=== PATIENT | female | born 1965 | race Caucasian/White ===

== ENCOUNTER 2018-12-09 17:45 | Emergency (ER) | payer SELFPAY ==
[~2018-12-09] VITALS: Ht 165.1 cm; Wt 88.2 kg
[2018-12-09 17:51] VITALS: Ht 165.1 cm; Wt 88.2 kg
[2018-12-09 18:51] LABS: BASOPHILS 0.5 % (0-2); EOSINOPHILS 0.2 % (0-7); HEMATOCRIT 39.7 % (36.0-48.0); HEMOGLOBIN 13.7 g/dL (12-16); IMMATURE GRANULOCYTES 0.2 % (0-5); LYMPHOCYTES 20.7 % (15-50); MCH 30.9 pg (26.0-34.0); MCHC 34.5 g/dL (31.0-37.0); MCV 89.4 fL (80.0-100.0); MEAN PLATELET VOLUME 9.4 fL (7.4-10.4); MONOCYTES 5.7 % (2-11); NEUTROPHILS 72.7 % (40-80); PLATELET COUNT 265 10x3/uL (130-400); RBC 4.44 10x6/uL (4.00-5.40); RDW 14.2 % (11.5-14.5); WBC 9.3 10x3/uL (4.8-10.8)
[2018-12-09 19:03] LABS: ALBUMIN 3.9 g/dL (3.4-5.0); ALKALINE PHOSPHATASE 66 U/L (46-116); ALT (SGPT) 23 U/L (10-68); BILIRUBIN - TOTAL 0.31 mg/dL (0.2-1.3); CALC OSMOLALITY 273 mosm/kg (275-300); CHLORIDE - SERUM 97 mmol/L (98-107); CREATININE - SERUM 0.8 mg/dL (0.6-1.3); GLUCOSE 105 mg/dL (74-106); POTASSIUM - SERUM 3.5 mmol/L (3.5-5.1); PROTEIN - SERUM 7.1 g/dL (6.4-8.2); SODIUM 136 mmol/L (136-145); UREA NITROGEN 18 mg/dL (7-18); eGFR NON AFRICAN AMERICAN 79 mL/min (90-120)
[2018-12-09 19:14] LABS: CKMB 1.1 U/L (0.0-3.6); CREATINE KINASE 75 UL (21-215); TROPONIN-I < 0.017 ng/mL (0.000-0.060)
[2018-12-09 22:09] VITALS: BP 133/72
== END 2018-12-09 22:10 | disposition home or self-care (01) ==
LOC: D.ER 17:45
PROVIDERS: Emergency Medicine
DX: R07.89 Other chest pain (principal)

== ENCOUNTER → 2018-12-29 10:11 | Outpatient (CLI) | payer OTHER ==
[2018-12-09 17:51] VITALS: BMI 32.3
== END | disposition home or self-care (01) ==
LOC: D.HCCARDIO 10:00
DX: I20.9 Angina pectoris, unspecified (principal)

== ENCOUNTER 2019-01-11 11:16 | Outpatient (CLI) | payer OTHER ==
[~2019-01-11] VITALS: Ht 165.1 cm; Wt 90.9 kg
--- NOTE | ~2019-01-11 | HEMODYNAMI ---
PATIENT:JULIA ERNANDEZ MEDICAL RECORD: [id number] : 65 LOCATION:[facility] ADMISSION DATE: 01/11/19 Generatedon:01/11/201913:20 Patient name: JULIA ERNANDEZ Patient #: [id number] SSN: DO B: 1965 Date of study: 01/11/2019 Page: Of Hemodynamic Procedure Report Patient Data Patient Demographics Procedure consent was obtained First Name: JULIA Gender: Female Last Name: AWAIS : 1965 [facility] Initial: JOHNSON Age: 53 year(s) Patient #: [id number] Race: Unknown Additional ID: [id number] Contact details [address]: [address] [place] [address] State: [place] City: [place] Zip code: [address] Admission Admission Data Admission Date: 01/11/2019 Admission Time: 11:16 Height (in.): 65 BSA: 1.98 (m2) Height (cm.): 165.1 BMI: 33.35 (kg/m2) Weight (lbs.): 200.42 Weight (kg.): 90.91 Procedure Procedure Types Cath Procedure Diagnostic Procedure C LHC w/Coronaries Procedure Description Procedure Date Procedure Date: 01/11/2019 Procedure Start Time: 13:09 Procedure End Time: 13:17 Procedure Staff Name Function Joe Massey MD Performing Physician Luz Maria Weston RN Nurse Jennifer Richards RT Scrub Frazaneh Pelletier RT Monitor Procedure Data Cath Procedure Fluoroscopy Diagnostic fluoroscopy Total fluoroscopy Time: 1.2 time: 1.2 min min Diagnostic fluoroscopy Total fluoroscopy dose: 268 dose: 268 mGy mGy Contrast Material Contrast Material Type Amount (ml) Isovue 300 52 Entry Location Entry Primary Successful Side Size Upsize Upsize Entry Closure Succes sful Closure Location (Fr) 1 (Fr) 2 (Fr) Remarks Device Remarks Femoral Right 5 Fr Exoseal artery Estimated blood loss: 5 ml Procedure Complications No complications Procedure Medications Medication Administration Route Dosage Oxygen etCO2 Nasal cannula 2 l/min Lidocaine 2% added to field 20 Heparin Flush Bag added to field 2 bags (1000units/500ml NS) 0.9% NaCl I.V. 100 ml/hr Radial Cocktail added to field 1 syringe (Verapomil 2mg/Nitro 400mcg/Heparin 1500units) Versed I.V. 2 mg Fentanyl I.V. 100 mcg Versed I.V. 1 mg Fentanyl I.V. 50 mcg Versed I.V. 1 mg Fentanyl I.V. 50 mcg Hemodynamics Rest BSA: 1.98 (m2) O2 Consumption: Estimated: 185.86 (ml/min) O2 Consumption indexed : Estimated:93.87 (ml/min/m) Heart Rate: 62 (bpm) Pressure Samples Time Site Value (mmHg) Purpose Heart Use Rate(bpm) 13:14 LV 108/-3,11 Snapshot 74 13:14 AO 130/72(98) Pullback 82 13:14 LV 123/-4,17 Pullback 82 Gradients Valve Time Site 1 Site 2 Mean SEP/DFP Peak To Heart Use (mmHg) (sec/min) Peak Rate (mmHg) (bpm) Aortic 13:14 LV AO 0 7 0 82 123/-4,17 130/72(98) Calculations Valve P-P Mean Valve Index Valve Source Name Gradient Area Flow (cm2) Aortic 0 0 0 0 Snapshots Pre Cath Intra NCS Post Cath Vital Signs Time Heart Resp SPO2 etCO2 NIBP Rhythm Pain Sedation Rate (ipm) (%) (mmHg) (mmHg) Status Level (bpm) 12:52:20 69 29 100 0 121/75(92) NSR 0 (11) 10(A) , No pain 12:56:34 70 14 99 39.5 117/72(88) NSR 0 (11) 10(A) , No pain 13:00:46 70 13 98 43.3 105/66(81) NSR 0 (11) 10(A) , No pain 13:05:00 70 15 99 25.8 114/61(85) NSR 0 (11) 9(A) , No pain 13:09:12 67 15 99 0 97/57(76) NSR 0 (11) 9(A) , No pain 13:13:24 71 11 100 34.9 106/59(78) NSR 0 (11) 9(A) , No pain 13:17:36 87 14 100 38 110/70(87) NSR 0 (11) 10(A) , No pain Medications Time Medication Route Dose Verified Delivered Reason Notes Effectiveness by by 12:55:03 Oxygen etCO2 2 l/min Joe Buffie used for Nasal Bryson Weston RN procedure cannula 12:55:10 Lidocaine 2% added 20ml Joe Joe for local to vial Bryson Massey MD anesthetic field 12:55:19 Heparin Flush added 2 bags Joe Joe used for Bag to Bryson Massey MD procedure (1000units/500ml field NS) 12:55:29 0.9% NaCl I.V. 100 Joe Buffie Per ml/hr Bryson Weston RN physician 12:55:35 Radial Cocktail added 1 Joe Joe for (Verapomil to syringe Bryson Massey MD vasodilation 2mg/Nitro field 400mcg/Heparin 1500units) 13:00:37 Versed I.V. 2 mg Joe Buffie for sedation Bryson Weston RN 13:00:43 Fentanyl I.V. 100 mcg Joe Buffie for sedation Bryson Weston RN 13:06:06 Versed I.V. 1 mg Joe Buffie for sedation Bryson Weston RN 13:06:11 Fentanyl I.V. 50 mcg Joe Buffie for sedation Bryson Weston RN 13:10:44 Versed I.V. 1 mg Joe Buffie for sedation Bryson Weston RN 13:10:47 Fentanyl I.V. 50 mcg Joe Buffie for sedation Bryson Weston RN Procedure Log Time Note 12:34:42 Patient Weight : 200.42 lbs 12:34:50 Patient Height : 65 inches 12:36:59 Time tracking: Regular hours (M-F 7:00 - 5:00) 12:37:03 Plan of Care:Hemodynamics will remain stable., Cardiac rhythm will remain stable., Comfort level will be maintained., Respiratory function will remain adequate., Patient/ family verbilizes understanding of procedure., Procedure tolerated without complication., Recovers from procedure without complications.. 12:37:53 Luz Maria Weston RN sent for patient. Start room use. 12:44:14 Patient received from Pre/Post Procedure Room to CCL 1 Alert and oriented. Tansferred to table in Supine position. 12:44:36 Warm blankets applied, and tamela hugger turned on for patient comfort. 12:44:37 Correct patient and procedure confirmed by team. 12:44:38 Signed procedure consent form obtained from patient. 12:44:39 ECG and BP/O2 sat monitors applied to patient. 12:44:40 Full Disclosure recording started 12:51:15 Vital chart was started 12:53:50 Baseline sample Acquired. 12:53:54 Rhythm: sinus rhythm 12:55:03 Oxygen 2 l/min etCO2 Nasal cannula was administered by Luz Maria Weston RN; used for procedure; 12:55:10 Lidocaine 2% 20ml vial added to field was administered by Joe Massey MD; for local anesthetic; 12:55:19 Heparin Flush Bag (1000units/500ml NS) 2 bags added to field was administered by Joe Massey MD; used for procedure; 12:55:29 0.9% NaCl 100 ml/hr I.V. was administered by Luz Maria Weston RN; Per physician; 12:55:35 Radial Cocktail (Verapomil 2mg/Nitro 400mcg/Heparin 1500units) 1 syringe added to field was administered by Joe Massey MD; for vasodilation; 12:55:57 H&P Date Dictated: 12/15/2018 Within 30 days and on chart., H&P Addendum completed by physician on day of procedure. (MUST COMPLETE FOR ALL OUTPATIENTS). 12:55:58 Pre-procedure instructions explained to patient. 12:55:59 Pre-op teaching completed and patient verbalized understanding. 12:56:00 Family in waiting room. 12:56:01 Patient NPO since Midnight. 12:56:24 Is the patient allergic to Iodine/contrast media? No. 12:56:25 Was the patient premedicated? No 12:56:28 Is patient on blood thinner?No 12:56:37 Patient diabetic? No. 12:56:39 Previous problem with sedation/anesthesia? No ? 12:57:32 Snore? No 12:57:33 Sleep apnea? No 12:57:34 Deviated septum? No 12:57:37 Opens mouth fully? Yes 12:57:38 Sticks out tongue? Yes 12:57:42 Airway obstruction? No ? 12:57:45 Dentures? No ? 12:58:12 Pre procedure: right dorsailis pedis pulse 2+ Normal; easily identifiable; not easily obliterated 12:58:15 Pre procedure: left dorsailis pedis pulse 2+ Normal; easily identifiable; not easily obliterated 12:58:19 Patient pain scale 0/10 ?. 12:58:30 IV patent on arrival in left antecubital with 0.9% NaCl at KVO. 12:58:33 Lab results completed and on chart. 12:58:42 Right Radial & Right Groin area was prepped with chlora-prep and draped in sterile fashion 12:58:43 Alarms reviewed by R. N. 12:58:44 Sharps counted by scrub and verified by R.N. 12:58:46 Physician arrived 12:58:46 --------ALL STOP TIME OUT------ 12:58:47 Final Timeout: patient, procedure, and site verified with staff and physician. All members of the team are in agreement. 12:58:49 Right Radial & Right Groin site verified by team. 12:58:57 Maximum allowable contrast dose 116.7ml. Physician notified. 12:59:01 Fire Safety Assessment: A--An alcohol-based skin anteseptic being used preoperatively., C--Open oxygen or nitrous oxide is being used., D--An ESU, laser, or fiber-optic light is being used. 12:59:10 Physical assessment completed. ASA score P 2 - A patient with mild systemic disease as per Joe Massey MD. 12:59:14 Sedation plan: IV Moderate Sedation Medication:Versed, Fentanyl 12:59:20 Use device set Radial Dx or PCI 12:59:22 ACIST Syringe (87151) opened to sterile field. 12:59:22 Medline Cath Pack ([id number]) opened to sterile field. 12:59:22 Bag Decanter (2002) opened to sterile field. 12:59:23 DIAGNOSTIC WIRE .035 260cm J wire (561913) opened to sterile field. 12:59:23 ACIST Hand Control (64644) opened to sterile field. 12:59:24 ACIST Manifold (97994) opened to sterile field. 12:59:24 Tegaderm 4 x 4 (1626W) opened to sterile field. 12:59:25 MBrace Wrist Support ([id number]) opened to sterile field. 12:59:25 NEEDLE Cook 21G 4cm Radial (H30637) opened to sterile field. 12:59:27 SHEATH 6FR Slender (80-1060) opened to sterile field. 13:00:37 Versed 2 mg I.V. was administered by Luz Maria Weston RN; for sedation; 13:00:43 Fentanyl 100 mcg I.V. was administered by Luz Maria Weston RN; for sedation; 13:06:06 Versed 1 mg I.V. was administered by Luz Maria Weston RN; for sedation; 13:06:11 Fentanyl 50 mcg I.V. was administered by Luz Maria Weston RN; for sedation; 13:06:18 Zero performed for pressure channel P1 13:06:26 Procedure started. 13:08:12 Dr Massey decided to go for femoral access after initial patient prep 13:09:14 Local anesthetic to right femoral artery with Lidocaine 2% by Joe Massey MD.INITIAL ACCESS ONLY 13:09:30 A 5 Fr sheath was inserted into the Right Femoral artery 13:10:12 SHEATH 5FR [place] (UXY275) opened to sterile field. 13:10:13 DIAGNOSTIC Multipack 5Fr catheter set (EQ0341) opened to sterile field. 13:10:29 5 Fr jl 4 guide catheter was inserted over the wire 13:10:35 LCA angiography performed. 13:10:38 Injector settings: Ml/sec: 3, Volume: 6, 13:10:44 Versed 1 mg I.V. was administered by Luz Maria Weston RN; for sedation; 13:10:47 Fentanyl 50 mcg I.V. was administered by Luz Maria Weston RN; for sedation; 13:11:09 Catheter removed. 13:11:18 5 Fr 3drc guide catheter was inserted over the wire 13:12:33 RCA angiography performed. 13:12:36 Injector settings: Ml/sec: 3, Volume: 6, 13:13:11 5 Fr pigtail guide catheter was inserted over the wire 13:14:11 LV hemodynamics recorded. 13:14:13 LV gram done using ORTIZ 13:14:15 Injector settings: Ml/sec: 5, Volume: 15, 13:14:23 EF : 55 % 13:14:33 Catheter removed. 13:14:51 EXOSEAL 5Fr (EX500) opened to sterile field. 13:15:01 Sheath removed intact; hemostasis achieved with Exoseal to the Right Femoral artery. 13:15:04 Procedure ended.(Physican Out) 13:16:37 Fluoroscopy time 01.20 minutes. 13:16:43 Fluoroscopy dose: 268 mGy 13:16:43 Flurop Dose total: 268 13:16:47 Contrast amount:Isovue 300 52ml. 13:16:49 Sharps counted by scrub and verified by R.N. 13:16:51 Insertion/operative site no bleeding no hematoma. 13:16:54 Post-op/insertion site Right Femoral artery dressed using a 4 x 4 and Tegaderm. 13:16:57 Post right femoral artery:stable 13:17:02 Post Procedure Pulses reassessed and unchanged 13:17:05 Post procedure rhythm: unchanged. 13:17:08 Estimated blood loss: 5 ml 13:17:10 Post procedure instruction explained to patient.Patient verbalizes understanding. 13:17:10 Patient needs reinforcement of post procedure teaching. 13:17:20 Procedure type changed to Cath procedure, Diagnostic procedure, LHC, LHC w/Coronaries 13:17:21 Procedure and supply charges have been captured, reviewed, submitted and are correct. 13:17:26 Procedure Complication : No complications 13:17:28 Vital chart was stopped 13:17:29 See physician's report for complete and final results. 13:17:32 Report given to Pre/Post Procedure Room. 13:17:35 Patient transfered to Pre/Post Procedure Room with Stretcher. 13:17:37 Procedure ended. 13:17:37 Full Disclosure recording stopped 13:17:41 End room use (Document Last) Device Usage Item Name Manufacture Quantity Catalog Hospital Part Current Minimal Lot# / Number Charge Number Stock Stock Serial# Code ACIST Acist 1 86306 227681 531330 919678 20 Syringe Medical (11657) Systems Inc Medline Medline 1 [id number] 365926 35004 580385 5 Cath Pack ([id number]) Bag Microtek 1 716104 93527 282502 5 Decanter Medical Inc. () DIAGNOSTIC [place] 1 334600 719839 090340 245097 30 WIRE .035 260cm J wire (336222) ACIST Hand Acist 1 91485 849253 098224 985195 5 Control Medical (56462) Systems Inc ACIST Acist 1 60947 030626 749000 577173 5 Manifold Medical (83782) Systems Inc Tegaderm 4 3M 1 1626W 647074 609746 781760 5 x 4 (1626W) MBrace Advanced 1 140-0250-00 292735 15591 399174 5 Wrist Vascular Support Dynamics ([id number]) NEEDLE [facility] [place] [employer] 1 D43360 256451 403793 730808 5 21G 4cm Radial (Y91106) SHEATH 6FR Terumo 1 [id number] 417340 846662 821229 5 Slender (80-1060) SHEATH 5FR Terumo 1 QJA955 233014 408250 759275 5 [place] (OEX301) DIAGNOSTIC Cardinal 1 DZ4470 230223 15535 226465 30 [facility] Carmolex, 5Fr catheter set (OU7839) EXOSEAL 5Fr Cardinal 1 EX500 131132 550989 233922 10 (EX500) Health Signature Audit [place] Stage Time Signature Unsigned Intra-Procedure 01/11/2019 Farzaneh Pelletier 1:20:13 PM RT(R) Signatures Monitor : Farzaneh Pelletier RT Signature : Date : Time : [address] [address]
[2019-01-11] MEDS ORDERED: METHOTREXATE2.5 MG PO (11:39)
[2019-01-11] MEDS ORDERED: CYMBALTA30 MG PO (11:40)
[2019-01-11] MEDS ORDERED: HYDROCODON-ACE1 EA10 PO (11:41)
[2019-01-11] MEDS ORDERED: PREDNISONE5 MG PO (11:41)
[2019-01-11] MEDS ORDERED: HYDROXYCHLOROQUINE PO (11:41)
[2019-01-11] MEDS ORDERED: HYDROCHLOROTHIA25 MG PO (11:42)
[2019-01-11] MEDS ORDERED: AZULFIDINE ENT500 MG PO (11:42)
[2019-01-11 11:49] VITALS: BP 119/77; Ht 165.1 cm; Wt 90.9 kg
[2019-01-11 12:00] LABS: BASOPHILS 0.7 % (0-2); EOSINOPHILS 1.3 % (0-7); HEMATOCRIT 38.7 % (36.0-48.0); IMMATURE GRANULOCYTES 0.4 % (0-5); LYMPHOCYTES 18.9 % (15-50); MCH 30.6 pg (26.0-34.0); MCHC 33.6 g/dL (31.0-37.0); MCV 91.1 fL (80.0-100.0); MEAN PLATELET VOLUME 9.2 fL (7.4-10.4); MONOCYTES 8.4 % (2-11); NEUTROPHILS 70.3 % (40-80); PLATELET COUNT 234 10x3/uL (130-400); RBC 4.25 10x6/uL (4.00-5.40); RDW 14.8 % (11.5-14.5); WBC 7.7 10x3/uL (4.8-10.8)
[2019-01-11 12:08] LABS: CALC OSMOLALITY 280 mosm/kg (275-300); CALCIUM 8.4 mg/dL (8.5-10.1); CARBON DIOXIDE 28.2 mmol/L (21.0-32.0); CHLORIDE - SERUM 101 mmol/L (98-107); CREATININE - SERUM 0.8 mg/dL (0.6-1.3); GLUCOSE 99 mg/dL (74-106); SODIUM 139 mmol/L (136-145); UREA NITROGEN 21 mg/dL (7-18); eGFR NON AFRICAN AMERICAN 79 mL/min (90-120)
--- NOTE | 2019-01-11 13:30 | NUR ---
PT RECEIVED VIA STRETCHER FROM MUSIC DIRECTOR FOR RECOVERY. PT DROWSY BUT RESPONDS TO VERBAL STIMULI. PT DENIES PAIN OR NAUSEA. 5 FR EXOCELE TO R GROIN, DRESSING CDI NO BLEEDING OR SWELLING NOTED. PT INSTRUCTED TO KEEP HEAD ON PILLOW AND LEG STRAIGHT, SHE VERBALIZED UNDERSTANDING. IV PATENT, INFUSING VIA ORDERS. HR NSR RATE 74, BP 119/71, O2 SAT 100 ON 2L/NC. CALL LIGHT IN REACH. FAMILY AT BEDSIDE
--- NOTE | 2019-01-11 13:45 | NUR ---
PT RESTING COMFORTABLY, R GROIN DRESSING REMAINS CDI NO BLEEDING OR SWELLING NOTED. PEDAL PULSES PALPABLE. DENIES PAIN OR NEEDS. TOLERATING FLUIDS. CALL LIGHT IN REACH.
--- NOTE | 2019-01-11 14:16 | NUR ---
PT RESTING WATCHING TV. PT DENIES PAIN OR NEEDS. R GROIN DRESSING CDI NO BLEEDING OR SWELLING NOTED. PEDAL PULSES PALPABLE. CALL LIGHT IN REACH, FAMILY AT BEDSIDE.
--- NOTE | 2019-01-11 14:34 | NUR ---
R GROIN DRESSING REMAINS CDI NO BLEEDING OR SWELLING NOTED. PEDAL PULSES PALPABLE. HOB ELEVATED SLIGHTLY, SANDWICH SERVED. CALL LIGHT IN REACH, FAMILY REMAINS AT BEDSIDE.
--- NOTE | 2019-01-11 15:00 | NUR ---
PT IN SITTING UP TALKING W FAMILY. R GROIN REMAINS SOFT, NO BLEEDING OR SWELLING NOTED, DRESSING REMAINS CDI. TOLERATED FOOD AND DRINK W/O NAUSEA. PT DENIES PAIN OR NEEDS. CALL LIGHT IN REACH
--- NOTE | 2019-01-11 15:15 | NUR ---
IV REMOVED W CATH INTACT, MONITORS REMOVED. PT UP TO DRESS AND AMBULATED TO BATHROOM.
--- NOTE | 2019-01-11 15:30 | NUR ---
DISCHARGE INSTRUCTIONS AND MED LIST REVIEWED W PATIENT, SHE VERBALIZED UNDERSTANDING. PT DISCHARGED TO PRIVATE VEHICLE VIA
== END 2019-01-11 15:35 | disposition home or self-care (01) ==
LOC: D.CATH 11:16
PROVIDERS: ATTEND Internal Medicine Cardiovascular Disease
DX: I20.9 Angina pectoris, unspecified (principal); Z01.812 Encounter for preprocedural laboratory examination

== ENCOUNTER → 2021-04-05 20:55 | Outpatient (CLI) | payer MEDICARE, BC ==
[2019-01-11 11:49] VITALS: BMI 33.3
[~2021-04-05 20:55] MED LIST: AZULFIDINE ENT500 MG PO; CYMBALTA30 MG PO; HYDROCHLOROTHIA25 MG PO; HYDROCODON-ACE1 EA10 PO; HYDROXYCHLOROQUINE PO; METHOTREXATE2.5 MG PO; PREDNISONE5 MG PO
== END | disposition home or self-care (01) ==
LOC: D.MAMMO 10:30
PROVIDERS: ATTEND Nurse Practitioner Family
DX: Z12.31 Encounter for screening mammogram for malignant neoplasm of breast (principal)